=== PATIENT | female | born 1950 | race African-American/Black ===

== ENCOUNTER 2017-10-24 08:38 | Observation (INO) | payer MEDICARE, OTHER ==
[~2017-10-24] VITALS: Ht 162.6 cm; Wt 70.8 kg
[~2017-10-24 08:38] MED LIST: AMLODIPINE BESYL5 MG PO; FOLIC ACID1 MG PO; METHOTREXATE2.5 MG PO; REMICADE100 MG/VIA IV
--- OUTSIDE RECORDS SUMMARY | 2017-10-24 08:41 | XMS REPORT | Summary of Care ---
Author Author Clare Ugalde M.A. Organization Unknown Address [facility] Phone Unavailable Care Team Providers Care Auto Finance Sales Rep Name Role Phone JAK FELTON M.D. Unavailable Unavailable Functional Status Name Dates Details Functional status health issues are not documented Status: Name Dates Details Cognitive status health issues are not documented Status: Problems Name Dates Details Shoulder arthritis (716.91, M19.019) Status: Active Complete tear of left rotator cuff (727.61, M75.122) Status: Active Complete tear of right rotator cuff (727.61, M75.121) Status: Active Rheumatoid arthritis involving both shoulders, unspecified rheumatoid factor presence (714.0, M06.9) Status: Active Medications Name Dates Details Meloxicam 7.5 MG Oral Tablet TAKE 1 TABLET DAILY WITH FOOD. Quantity: 30 JAK FELTON M.D. * Start : 12-Sep-2017 Active Allergies and Adverse Reactions Name Dates Details No Known Drug Allergies (Allergy) Status: Active Procedures Procedure Dates Details Procedures not documented Immunization Name Dates Details Immunizations not documented Social History Name Dates Details Unknown if ever smoked Vital Signs Date Test Result Details No Known Vitals to report Results Date Description Value Details Results not documented Plan of Care Name Dates Details Planned Observations Planned Goals not documented Instructions Name Dates Details Instructions not documented Encounters Appointment; JAK FELTON M.D. Encounter Diagnosis: Problem not documented On: 11-Jun-2017 11:15 Appointment; JAK FELTON M.D. Encounter Diagnosis: Problem not documented On: 12-Sep-2017 10:45
[2017-10-24] MEDS ORDERED: ASPIRIN 81 MG CHEW TAB PO ONE ×2 (09:30→10:45)
[2017-10-24] MEDS ORDERED: NITROGLYCERIN 2% OINT 1 GM PKT TOP ONE (09:30)
[2017-10-24 09:41] LABS: BASOPHILS % 0.3 % (0.0-1.0); EOSINOPHILS # (AUTO) 0.2 (0.0-0.4); EOSINOPHILS % 2.2 % (0.0-6.0); HEMATOCRIT 37.2 % (34.2-44.1); HEMOGLOBIN 12.1 g/dL (12.0-16.0); LYMPHOCYTES # (AUTO) 2.8 (1.0-3.2); LYMPHOCYTES % 26.6 % (18.0-39.1); MEAN CORPUSCULAR HEMOGLOBIN 27.3 pg (28-32); MEAN CORPUSCULAR HGB CONC 32.5 g/dL (31-35); MEAN CORPUSCULAR VOLUME 83.8 fL (81-99); MONOCYTES # (AUTO) 0.7 (0.2-0.8); MONOCYTES % 6.7 % (4.4-11.3); NEUTROPHILS # (AUTO) 6.6 (2.1-6.9); NEUTROPHILS % 63.8 % (38.7-80.0); PLATELET COUNT 336 x10e3/uL (140-360); RED BLOOD COUNT 4.44 x10e6/uL (3.6-5.1); RED CELL DISTRIBUTION WIDTH 14.2 % (11.7-14.4)
[2017-10-24 09:53] LABS: ALANINE AMINOTRANSFERASE 14 IU/L (0-55); ALBUMIN 3.8 g/dL (3.5-5.0); ALBUMIN/GLOBULIN RATIO 0.9 (0.8-2.0); ALKALINE PHOSPHATASE 117 IU/L (40-150); ANION GAP 15.1 mmol/L (8-16); BLOOD UREA NITROGEN 21 mg/dL (7-26); BUN/CREATININE RATIO 24 (6-25); CALCIUM 9.3 mg/dL (8.4-10.2); CARBON DIOXIDE 22 mmol/L (22-29); CHLORIDE 109 mmol/L (98-107); CREATINE KINASE 48 IU/L (29-168); CREATININE, SERUM 0.88 mg/dL (0.57-1.11); EST GLOMERULAR FILTRATION RATE > 60 ML/MIN (60-); GLUCOSE 101 mg/dL (74-118); POTASSIUM 4.1 mmol/L (3.5-5.1); SODIUM 142 mmol/L (136-145)
--- NOTE | 2017-10-24 09:57 | Diagnostic Imaging Report ---
PROCEDURE:CHEST SINGLE (PORTABLE) TECHNIQUE:Portable AP chest INDICATION:Chest pain COMPARISON:Patients [facility], DX, CHEST SINGLE (PORTABLE), 12/17/2016, 9:40. FINDINGS: Lungs are clear and symmetrically inflated. No pleural effusions. Normal heart size, mediastinal contour and pulmonary vasculature. Intact skeleton. CONCLUSION: No acute abnormality. Dictated by: Alex Hester M.D. on 10/24/2017 at 9:57 Electronically approved by: Alex Hester M.D. on 10/24/2017 at 9:57
[2017-10-24] MEDS ORDERED: ONDANSETRON HCL INJ 2 MG/ML VIAL IV PRN (10:45)
--- OUTSIDE RECORDS SUMMARY | 2017-10-24 11:34 | XMS REPORT ---
Author Author [facility] Address Unknown Phone Unavailable Care Team Providers Care Woodwork Salvage Inspector Name Role Phone GRANT BURROUGHS Unavailable Unavailable Problems This patient has no known problems. Allergies, Adverse Reactions, Alerts This patient has no known allergies or adverse reactions. Medications This patient has no known medications. Results Test Description Test Time Test Comments Text Results Atomic Results Result Comments CHEST SINGLE (PORTABLE) [address] [address] Patient Name: KAT ARANDA MR #: [id number] : 1950 Age/Sex: 67/F Req #: [id number] Adm Physician: Ordered by: GRANT BURROUGHS MD Report #: [id number] Location: ER Room/Bed: Procedure: [id number] DX/CHEST SINGLE (PORTABLE) Exam Date: 10/24/17 Exam Time: 0920 REPORT STATUS: Signed PROCEDURE: CHEST SINGLE (PORTABLE) TECHNIQUE: Portable AP chest INDICATION: Chest pain COMPARISON: [facility], DX, CHEST SINGLE (PORTABLE), , 9:40. FINDINGS: Lungs are clear and symmetrically inflated. No pleural effusions. Normal heart size, mediastinal contour and pulmonary vasculature. Intact skeleton. CONCLUSION: No acute abnormality. Dictated by: Louise Hester M.D. on 10/24/2017 at 9:57 Electronically approved by: Louise Hester M.D. on 10/24/2017 at 9:57 Dictated By: LOUISE HESTER MD 6 Transcribed By: ANGIE on 10/24/17956 COPY TO: GRANT BURROUGHS MD
[2017-10-24] MEDS: FAMOTIDINE 20 MG TAB PO SCH ×2 (12:50→22:30)
[2017-10-24] MEDS ORDERED: ACETAMINOPHEN 325 MG TAB PO PRN (15:00)
[2017-10-24] MEDS ORDERED: NITROGLYCERIN 0.4 MG SUBL SL PRN (15:00)
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
[2017-10-24 17:19] VITALS: BP 177/86
[2017-10-24 17:21] VITALS: BP 177/86
[2017-10-24 17:34] LABS: CREATINE KINASE 50 IU/L (29-168)
[2017-10-24] MEDS: METOPROLOL SUCCINATE 25 MG TAB XL PO SCH (18:05)
[2017-10-24] MEDS: NITROGLYCERIN 2% OINT 1 GM PKT TOP SCH (18:05)
[2017-10-24 20:30] VITALS: BP 167/89
[2017-10-24] MEDS: HEPARIN SOD (PORCINE) 5,000 UNIT/ML VIAL SC SCH (22:30)
[2017-10-25 00:27] VITALS: BP 139/70
[2017-10-25] MEDS: NITROGLYCERIN 2% OINT 1 GM PKT TOP SCH ×3 (00:53→12:09)
[2017-10-25 04:00] VITALS: BP 142/78
[2017-10-25 06:54] LABS: BASOPHILS % 0.4 % (0.0-1.0); EOSINOPHILS # (AUTO) 0.3 (0.0-0.4); EOSINOPHILS % 3.4 % (0.0-6.0); HEMATOCRIT 39.9 % (34.2-44.1); HEMOGLOBIN 12.8 g/dL (12.0-16.0); LYMPHOCYTES # (AUTO) 4.4 (1.0-3.2); LYMPHOCYTES % 44.4 % (18.0-39.1); MEAN CORPUSCULAR HEMOGLOBIN 27.5 pg (28-32); MEAN CORPUSCULAR HGB CONC 32.1 g/dL (31-35); MEAN CORPUSCULAR VOLUME 85.6 fL (81-99); MONOCYTES # (AUTO) 0.9 (0.2-0.8); MONOCYTES % 8.7 % (4.4-11.3); NEUTROPHILS # (AUTO) 4.3 (2.1-6.9); NEUTROPHILS % 42.8 % (38.7-80.0); PLATELET COUNT 379 x10e3/uL (140-360); RED BLOOD COUNT 4.66 x10e6/uL (3.6-5.1); RED CELL DISTRIBUTION WIDTH 14.3 % (11.7-14.4)
[2017-10-25 07:24] LABS: ANION GAP 11.9 mmol/L (8-16); BLOOD UREA NITROGEN 15 mg/dL (7-26); BUN/CREATININE RATIO 17 (6-25); CALCIUM 10.2 mg/dL (8.4-10.2); CARBON DIOXIDE 28 mmol/L (22-29); CHLORIDE 106 mmol/L (98-107); CHOL/HDL RATIO 4.8 (3.0-3.6); CHOLESTEROL 252 MD/DL (0-199); CREATINE KINASE 58 IU/L (29-168); CREATININE, SERUM 0.87 mg/dL (0.57-1.11); EST GLOMERULAR FILTRATION RATE > 60 ML/MIN (60-); GLUCOSE 111 mg/dL (74-118); HDL CHOLESTEROL 53 MG/DL (40-60); LDL CHOLESTEROL 174 MG/DL (60-130); POTASSIUM 3.9 mmol/L (3.5-5.1); SODIUM 142 mmol/L (136-145); TRIGLYCERIDES 125 MG/DL (0-149)
[2017-10-25 08:00] VITALS: BP 167/79
[2017-10-25] MEDS: HEPARIN SOD (PORCINE) 5,000 UNIT/ML VIAL SC SCH (09:00)
[2017-10-25] MEDS: FAMOTIDINE 20 MG TAB PO SCH (09:00)
[2017-10-25] MEDS ORDERED: ASPIRIN 81 MG ENTERIC COATED PO SCH (09:00)
[2017-10-25] MEDS: METOPROLOL SUCCINATE 25 MG TAB XL PO SCH ×2 (09:00→12:13)
[2017-10-25 09:18] VITALS: BP 167/79
[2017-10-25 12:00] VITALS: BP 185/86
--- NOTE | 2017-10-25 12:53 | Diagnostic Imaging Report ---
PROCEDURE:US ABDOMEN LIMITED COMPARISON:None. INDICATIONS:GB+ - ABDOMINAL/CHEST PAIN TECHNIQUE: Mac-scale and color doppler transverse and longitudinal images of the right upper quadrant of the abdomen were obtained. FINDINGS: Liver: 12.3 cm in right mid-clavicular line. Normal echogenicity. No masses. Main portal vein: 0.7 cm, hepatopetal flow Gallbladder: No stones, sludge, wall thickening, or pericholecystic fluid. Common Bile Duct: 0.2 cm Sonographic Rivas's sign: Negative Right kidney: 7.7 cm. right renal cortex 1.2 cm. Normal echogenicity. No solid masses or hydronephrosis. Pancreas: The visualized portions of the neck and proximal body unremarkable. Inferior vena cava: Patent Aorta: Within normal limits Ascites: None in the right upper quadrant of the abdomen. CONCLUSION: 1. No sonographic evidence of cholelithiasis or cholecystitis. 2. Decreased size of the right kidney. Normal echogenicity. No hydronephrosis or obstruction. Leonidas Peñaloza M.D. Dictated by: Leonidas Peñaloza M.D. on 10/25/2017 at 12:53 Electronically approved by: Leonidas Peñaloza M.D. on 10/25/2017 at 12:53
--- NOTE | 2017-10-25 13:15 | Cardiology Report ---
DATE OF STUDY: October 25, 2017 NUCLEAR STRESS REPORT PROCEDURE TITLE: Rest/stress single-isotope SPECT imaging with exercise stress and gated SPECT imaging. INDICATION: Chest pain. PROCEDURE: The patient performed treadmill exercise for 5 minutes 39 seconds to stage 2 and completing an estimated work load of 7 metabolic equivalents (mets). The test was terminated due to fatigue. The heart rate was 104 beats per minute at baseline and increased to 149 beats per minute at peak exercise, which was 98% of the maximum predicted heart rate. The rest blood pressure was 163/70 and increased to 197/90 mmHg, which is a normal response. The patient did not develop any symptoms other than fatigue during the procedure. The resting electrocardiogram demonstrated normal sinus rhythm. There were no ST segment changes consistent with myocardial ischemia. Frequent PVCs were noted during recovery. Myocardial perfusion imaging was performed at rest following the injection of 11 mCi of tetrofosmin. At peak exercise, the patient was injected with 33 mCi of tetrofosmin and exercise was continued for 1 minute. Gated post-stress tomographic imaging was performed. FINDINGS: The overall quality of the study is fair. The left ventricular cavity is noted to be normal size on the rest and stress studies. SPECT images demonstrate homogenous tracer distribution throughout the myocardium. Gated SPECT imaging reveals normal myocardial thickening and wall motion. The left ventricular ejection fraction was calculated to be 57%. IMPRESSION: Myocardial perfusion imaging is normal. Overall, left ventricular systolic function was normal without regional wall motion abnormalities. Job#: [id number] [facility]
[2017-10-25] MEDS ORDERED: LIPITOR20 MG PO (14:01)
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
--- NOTE | 2017-10-25 18:20 | Progress Note ---
DATE: October 25, 2017 CARDIOLOGY PROGRESS NOTE SUBJECTIVE: The patient denies chest pain or shortness of breath. She was seen for nuclear stress test. OBJECTIVE VITAL SIGNS: Temperature 96.9 degrees, pulse 83, respiratory rate 16, blood pressure 167/79, oxygen saturation 97% on room air. GENERAL: Awake, alert and in no acute distress. LUNGS: Clear to auscultation bilaterally. No wheezes or crackles. CARDIOVASCULAR: Normal rate, regular rhythm. No murmur. Normal S1, S2. ABDOMEN: Soft, nontender. EXTREMITIES: No edema. CARDIAC MEDICATIONS: 1. Metoprolol succinate 12.5 mg p.o. b.i.d. 2. Aspirin 81 mg p.o. daily. 3. Atorvastatin 20 mg p.o. nightly. LABS: WBC 9.92, hemoglobin 12.8, hematocrit 39.9, platelets 379,000, sodium 142, potassium 3.9, chloride 106, CO2 of 28, BUN 15, creatinine 0.87. 252, LDL 174, triglycerides 125, HDL 53. TELEMETRY: Normal sinus rhythm. IMPRESSION 1. Chest pain. 2. Hypertension. 3. Hyperlipidemia. 4. Rheumatoid arthritis. RECOMMENDATIONS: Nuclear stress test has been done to evaluate for ischemics given her multiple risk factors. Further recommendations pending stress test results. The patient will need further cholesterol-lowering agents given her multiple risk factors as well. Continue current cardiac medications. Please have her follow up with us in the office in 2 weeks. Thank you for this consult. We will continue to follow. Job#: [id number]
[2017-10-25] MEDS ORDERED: ATORVASTATIN 20 MG TAB PO SCH (21:00)
--- NOTE | 2017-10-26 13:33 | History and Physical ---
The History and Physical was incomplete. You may refer to the handwritten physical. PHYSICAL EXAMINATION: VITAL SIGNS: She was afebrile. Blood pressure was elevated at 174/96. GENERAL: The patient is a well-developed black female in no acute distress, looking her stated age. HEENT: Head is normocephalic, atraumatic. Eyes: Extraocular movements are intact. LUNGS: Clear. HEART: Regular rhythm. ABDOMEN: Nontender. EXTREMITIES: Not edematous. Patient was examined in the emergency department. She had stopped taking her medications. Job#: [id number]
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
== END 2017-10-25 14:18 | disposition home or self-care (01) ==
LOC: ER 08:38 → ERHOLD 11:31 → IMCU 16:34
PROVIDERS: ADMIT Internal Medicine; ATTEND Internal Medicine
DX: R07.2 Precordial pain (principal); I10 Essential (primary) hypertension; M06.9 Rheumatoid arthritis, unspecified; E78.5 Hyperlipidemia, unspecified
CPT/HCPCS: 36415 ×2; 71045; 76705; 78452; 80048; 80053; 80061; 82550 ×2; 82553 ×2; 84484 ×2; 85025 ×2; 87040; 87400; 93005; 93017; 93306; A9502; G0378 ×2; J1644

== ENCOUNTER 2019-03-03 21:55 | Emergency (ER) | payer MEDICARE, OTHER ==
[~2019-03-03] VITALS: Ht 162.6 cm; Wt 70.8 kg
[~2019-03-03 21:55] MED LIST changes: +LIPITOR20 MG PO
--- OUTSIDE RECORDS SUMMARY | 2019-03-03 21:58 | XMS REPORT | Summary of Care ---
Author Author Carmel Carney M.A. Organization Unknown Address [facility] Phone Unavailable Care Team Providers Care Basket Operator Name Role Phone JAK FELTON M.D. Unavailable Unavailable Unavailable Unavailable Functional Status Name Dates Details [...] Details Meloxicam 7.5 MG Oral Tablet TAKE ONE TABLET EVERY DAY WITH FOOD Quantity: 30 JAK FELTON M.D. * Start : 15-Jan-2018 Active Allergies and Adverse Reactions Name Dates [...] Details Planned Observations Planned Goals not documented Interventions Provided Medication Changes* Meloxicam 7.5 MG Oral Tablet - Renew Instructions Name Dates Details Instructions not documented Encounters Appointment; JAK FELTON M.D. Encounter Diagnosis: Problem not documented On: 11-Jun-2017 11:15 Appointment; JAK FELTON M.D. Encounter Diagnosis: Problem not documented On: 12-Sep-2017 10:45 Appointment; JAK FELTON M.D. Encounter Diagnosis: Problem not documented On: 22-Oct-2017 11:30
[2019-03-03] MEDS ORDERED: NEOMYCIN/POLYMYX/BACITR OINT 0.9 GM PKT ONE (22:44)
[2019-03-03] MEDS ORDERED: NEOMYCIN/POLYMYX/BACITR OINT 0.9 GM PKT TOP ONE (23:00)
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
--- NOTE | 2019-03-04 01:12 | Diagnostic Imaging Report ---
KNEE LEFT THREE VIEWS - 3 views HISTORY: Pain COMPARISON: None available. FINDINGS: Bones: No acute displaced fracture. Osseous alignment is within normal limits. Low bone mineral density. Joints: The joint spaces are well-maintained. Soft tissues: The soft tissues appear unremarkable. IMPRESSION: No acute radiographic osseous abnormality. Mild degenerative changes in the knee and small nonspecific joint effusion. Signed by: Laureano Burton DO on 03/04/2019 1:08 AM
[2019-03-04 01:22] VITALS: BP 154/86
== END 2019-03-04 01:31 | disposition home or self-care (01) ==
LOC: ER 21:55
DX: S00.83XA Contusion of other part of head, initial encounter (principal); S00.33XA Contusion of nose, initial encounter; S80.212A Abrasion, left knee, initial encounter; W01.0XXA Fall on same level from slipping, tripping and stumbling without subsequent striking against object, initial encounter; Y92.008 Other place in unspecified non-institutional (private) residence as the place of occurrence of the external cause
CPT/HCPCS: 70450; 70486; 99283

== ENCOUNTER 2020-10-29 12:34 | Emergency (ER) | payer MEDICARE, OTHER ==
[~2020-10-29] VITALS: Ht 162.6 cm; Wt 70.8 kg
[2020-10-29 13:28] LABS: BASOPHILS % 0.3 % (0.0-1.0); EOSINOPHILS # (AUTO) 0.2 (0.0-0.4); EOSINOPHILS % 1.7 % (0.0-6.0); LYMPHOCYTES # (AUTO) 1.8 (1.0-3.2); LYMPHOCYTES % 16.5 % (18.0-39.1); MEAN CORPUSCULAR HEMOGLOBIN 26.7 pg (28-32); MEAN CORPUSCULAR HGB CONC 31.6 g/dL (31-35); MEAN CORPUSCULAR VOLUME 84.6 fL (81-99); MONOCYTES # (AUTO) 0.8 (0.2-0.8); MONOCYTES % 7.5 % (4.4-11.3); NEUTROPHILS # (AUTO) 8.1 (2.1-6.9); NEUTROPHILS % 73.5 % (38.7-80.0); PLATELET COUNT 348 x10e3/uL (140-360); RED BLOOD COUNT 4.49 x10e6/uL (3.6-5.1); RED CELL DISTRIBUTION WIDTH 16.6 % (11.7-14.4)
[2020-10-29 13:33] LABS: INR 0.96; PROTHROMBIN TIME 13.3 seconds (11.9-14.5)
[2020-10-29 13:34] LABS: PARTIAL THROMBOPLASTIN TIME 32.4 seconds (23.8-35.5)
[2020-10-29 13:43] LABS: ALBUMIN 3.5 g/dL (3.5-5.0); ALBUMIN/GLOBULIN RATIO 0.9 (0.8-2.0); ANION GAP 16.5 mmol/L (8-16); CALCIUM 9.3 mg/dL (8.4-10.2); CREATININE, SERUM 1.15 mg/dL (0.57-1.11); POTASSIUM 3.5 mmol/L (3.5-5.1)
[2020-10-29 13:49] LABS: CREATINE KINASE MB 0.7 ng/mL (0-5.0)
[2020-10-29 13:55] LABS: CLARITY,URINE CLEAR (CLEAR); COLOR,URINE YELLOW (YELLOW); LEUKOCYTE ESTERASE ,URINE NEGATIVE (NEGATIVE); NITRITE,URINE NEGATIVE (NEGATIVE); PROTEIN,URINE DIPSTICK 1+ (NEGATIVE)
[2020-10-29 13:56] LABS: KETONES,URINE NEGATIVE (NEGATIVE); URINE UROBILINOGEN 1 mg/dL (0.2 - 1)
[2020-10-29 14:20] LABS: BACTERIA,URINE RARE /HPF; EPITHELIAL CELLS,URINE FEW /LPF; RBC,URINE 0-5 /HPF (0-5); WBC,URINE (MAN) 0-5 /HPF (0-5)
== END 2020-10-29 16:40 | disposition home or self-care (01) ==
LOC: ER 12:39
DX: R60.9 Edema, unspecified (principal); M66.0 Rupture of popliteal cyst; R91.8 Other nonspecific abnormal finding of lung field
CPT/HCPCS: 36415; 71045; 80053; 81001; 82550; 82553; 83880; 84484; 85025; 85610; 85730; 87086; 93005; 93971; 99283

== ENCOUNTER → 2020-11-07 | Outpatient (CLI) | payer MEDICARE, OTHER | LOC: MRI 13:41 | PROVIDERS: ATTEND Specialist | DX: S76.311A Strain of muscle, fascia and tendon of the posterior muscle group at thigh level, right thigh, initial encounter (principal) ==

== ENCOUNTER 2020-11-22 13:00 | Outpatient (RCR) | payer MEDICARE, OTHER | END 2020-11-23 | LOC: PT 13:00 | PROVIDERS: ATTEND Specialist | DX: M06.9 Rheumatoid arthritis, unspecified (principal); M25.561 Pain in right knee ==

== ENCOUNTER 2020-11-24 11:18 | Outpatient (RCR) | payer MEDICARE, OTHER | END 2020-12-23 | LOC: PT 11:18 | PROVIDERS: ATTEND Specialist | DX: M06.9 Rheumatoid arthritis, unspecified (principal) ==

== ENCOUNTER → 2020-12-09 | Outpatient (CLI) | payer MEDICARE, OTHER ==
[~2020-12-09] MED LIST changes: +IOPAMIDOL 370 MG/ML 200 ML INFUS..BTL INJ ONE; +SODIUM CHLORIDE 0.9% 50ML 50 ML ONE
[2020-12-09 13:21] LABS: BLOOD UREA NITROGEN 19 mg/dL (7-26); BUN/CREATININE RATIO 21 (6-25); CREATININE, SERUM 0.92 mg/dL (0.57-1.11); EST GLOMERULAR FILTRATION RATE > 60 ML/MIN (60-)
== END ==
LOC: CT 12:01
PROVIDERS: ATTEND Internal Medicine
DX: J98.4 Other disorders of lung (principal); R91.1 Solitary pulmonary nodule
CPT/HCPCS: 36415; 71260; 74177; 82565; 84520; Q9967